=== PATIENT | male | born 1980 ===

== ENCOUNTER 2020-12-10 11:23 | Outpatient (RCR) | payer OTHER | END 2021-02-01 | disposition home or self-care (01) | PROVIDERS: ATTEND Nurse Practitioner Family | DX: S62.663D Nondisplaced fracture of distal phalanx of left middle finger, subsequent encounter for fracture with routine healing (principal); W22.8XXD Striking against or struck by other objects, subsequent encounter; Y99.0 Civilian activity done for income or pay ==